=== PATIENT | female | born 1990 | race Caucasian/White ===

== ENCOUNTER 2021-07-23 20:16 | Emergency (ER) | payer SELFPAY ==
[~2021-07-23] VITALS: Ht 157.5 cm; Wt 49.9 kg
[2021-07-23] MEDS ORDERED: AMOCLA875 PO (23:12)
== END 2021-07-23 23:45 | disposition home or self-care (01) ==
LOC: ER 20:16
DX: S01.451A Open bite of right cheek and temporomandibular area, initial encounter (principal); S01.25XA Open bite of nose, initial encounter; F17.200 Nicotine dependence, unspecified, uncomplicated; Z23 Encounter for immunization; W54.0XXA Bitten by dog, initial encounter; Y92.9 Unspecified place or not applicable; Z88.0 Allergy status to penicillin
CPT/HCPCS: A9270